=== PATIENT | female | born 1940 | race Hispanic/Latino ===

== ENCOUNTER 2021-07-28 23:02 | Emergency (ER) | payer SELFPAY ==
[2021-07-29 01:38] LABS: Urine Blood Negative (Negative); Urine Glucose Negative (Negative); Urine Protein Negative (Negative); Urine Specific Gravity 1.025 (1.005-1.030)
[2021-07-29 02:09] LABS: Urine Amorphous Sediment 1+ /HPF (NONE SEEN); Urine Bacteria <20 /HPF (<20); Urine RBC <5 /HPF (NONE SEEN); Urine Urothelial Cells <5 /HPF (NONE SEEN)
[2021-07-29] MEDS ORDERED: NA CHLORIDE 0.9% 500 ML ONE (02:11)
[2021-07-29] MEDS ORDERED: ONDANSETRON 4 MG/2 ML VIAL ONE (02:11)
[2021-07-29] MEDS ORDERED: FAMOTIDINE 20 MG/2 ML VIAL IV ONE (02:11)
[2021-07-29 02:36] LABS: Absolute Lymphocytes (CBC) 0.6 K/uL (0.7-4.9); Hematocrit 38.9 % (36.0-45.0); Lymphocytes % 12.4 % (15.3-44.8); MPV 6.7 fL (7.6-11.3); RBC Red Blood Cell Count 4.51 M/uL (3.86-4.86)
[2021-07-29 02:49] LABS: Albumin 3.3 g/dL (3.4-5.0); Bilirubin Total 0.6 mg/dL (0.2-1.0); Potassium 3.5 mmol/L (3.5-5.1); Protein, Total 6.7 g/dL (6.4-8.2)
[2021-07-29] MEDS ORDERED: CEFTRIAXONE 1000 MG/VIAL ONE (03:48)
--- NOTE | 2021-07-29 05:13 | ER ---
Nurse's Notes [facility] Name: Elizabeth Mcclellan Age: 80 yrs Sex: Female : 1940 Arrival Date: 07/28/2021 Time: 23:06 Bed 5 Private MD: Diagnosis: Gastroenteritis;UTI/ Urinary tract infection, site not specified Presentation: 07/28 23:19 Chief complaint:. ld1 23:22 Chief complaint: Patient states: N/V/D - chills, no fever. Symptoms began this morning. ld1 Coronavirus screen: At this time, the client does not indicate any symptoms associated with coronavirus-19. Ebola Screen: No symptoms or risks identified at this time. Initial Sepsis Screen: Does the patient meet any 2 criteria? No. Patient's initial sepsis screen is negative. Does the patient have a suspected source of infection? No. Patient's initial sepsis screen is negative. Risk Assessment: Do you want to hurt yourself or someone else? Patient reports no desire to harm self or others. Onset of symptoms was July 28, 2021. 23:22 Method Of Arrival: Ambulatory ld1 23:22 Acuity: AYAD 3 ld1 Triage Assessment: 23:24 General: Appears in no apparent distress. comfortable, Behavior is calm, cooperative, ld1 appropriate for age. Pain: Denies pain. EENT: No signs and/or symptoms were reported regarding the EENT system. Neuro: Level of Consciousness is awake, alert, obeys commands, Oriented to person, place, time, situation. Cardiovascular: Capillary refill < 3 seconds Patient's skin is warm and dry. Respiratory: Airway is patent Respiratory effort is even, unlabored. GI: Abdomen is round non-distended, Reports diarrhea, nausea, vomiting. : No signs and/or symptoms were reported regarding the genitourinary system. Derm: No signs and/or symptoms reported regarding the dermatologic system. Musculoskeletal: No signs and/or symptoms reported regarding the musculoskeletal system. Historical: - Allergies: 23:20 No Known Allergies; ld1 - Home Meds: 23:20 pantoprazole 40 mg oral grps 1 packet 2 times per day [Active]; candesartan 16 mg oral ld1 tab 1 tab once daily [Active]; Diazepam Oral [Active]; - PMHx: 23:22 Hypertensive disorder; Anxiety; GERD; ld1 - PSHx: 23:22 Cholecystectomy; ld1 - Immunization history:: Adult Immunizations up to date, Client reports having NOT received the Covid vaccine. - Social history:: Smoking status: Patient denies any tobacco usage or history of. Patient/guardian denies using alcohol. Screenin/17 02:20 Abuse screen: Denies threats or abuse. Denies injuries from another. Nutritional as6 screening: No deficits noted. Tuberculosis screening: No symptoms or risk factors identified. Fall Risk None identified. Assessment: 02:20 General: Appears in no apparent distress. Behavior is calm, cooperative. Pain: as6 Complains of pain in epigastric area. Neuro: Level of Consciousness is awake, alert, obeys commands, Oriented to person, place, time, situation. Cardiovascular: JVD is absent Patient's skin is warm and dry. Respiratory: Respiratory effort is even, unlabored, Respiratory pattern is regular, symmetrical. GI: Reports upper abdominal pain, diarrhea, nausea, vomiting. Vital Signs: 07/28 23:22 BP 154 / 80; Pulse 82; Resp 18; Temp 97.9(O); Pulse Ox 97% on R/A; Weight 77.11 kg; ld1 Height 5 ft. 3 in. (160.02 cm); Pain 0/10; 07/29 02:00 BP 147 / 72; Pulse 71; Resp 18 S; Pulse Ox 94% on R/A; as6 03:00 BP 143 / 68; Pulse 76; Resp 16 S; Pulse Ox 95% on R/A; as6 03:55 BP 140 / 74; Pulse 80; Resp 15 S; Pulse Ox 95% on R/A; as6 05:18 BP 150 / 72; Pulse 76; Resp 15 S; Pulse Ox 96% on R/A; as6 07/28 23:22 Body Mass Index 30.11 (77.11 kg, 160.02 cm) ld1 ED Course: 07/28 23:06 Patient arrived in ED. kz 23:24 Triage completed. ld1 23:24 Arm band placed on right wrist. ld1 07/29 01:30 Bairon Silva RN is Primary Nurse. as6 01:34 Sunny Alonso MD is Attending Physician. 7 02:15 Inserted saline lock: 22 gauge in right antecubital area, using aseptic technique. as6 Blood collected. 02:20 Placed in gown. Bed in low position. Call light in reach. Side rails up X 1. Adult w/ as6 patient. Pulse ox on. NIBP on. Warm blanket given. 03:50 CT Abd/Pelvis - IV Contrast Only In Process Unspecified. EDMS 05:28 No provider procedures requiring assistance completed. IV discontinued, intact, as6 bleeding controlled, No redness/swelling at site. Pressure dressing applied. Administered Medications: 02:21 Drug: Pepcid (famotidine) 20 mg Route: IVP; Site: right antecubital; as6 05:30 Follow up: Response: No adverse reaction as6 02:21 Drug: NS 0.9% 500 ml Route: IV; Rate: bolus; Site: right antecubital; as6 05:30 Follow up: Response: No adverse reaction; IV Status: Completed infusion; IV Intake: as6 500ml 02:22 Drug: Zofran (Ondansetron) 4 mg Route: IVP; Site: right antecubital; as6 05:29 Follow up: Response: No adverse reaction as6 03:55 Drug: Rocephin (cefTRIAXone) 1 grams Route: IV; Rate: per protocol; Site: right as6 antecubital; 05:31 Follow up: Response: No adverse reaction; IV Status: Completed infusion; IV Intake: [id number] Medication: 05:29 VIS not applicable for this client. as6 Intake: 05:30 IV: 500ml; Total: 500ml. as6 05:31 IV: 10ml; Total: 510ml. as6 Outcome: 05:12 Discharge ordered by . 7 05:29 Discharged to home ambulatory, with family. as6 05:29 Condition: stable 05:29 Discharge instructions given to patient, family, Instructed on discharge instructions, follow up and referral plans. medication usage, Demonstrated understanding of instructions, follow-up care, medications, Prescriptions given X 4. 05:31 Patient left the ED. as6 Signatures: Dispatcher [employer] EDMS Sunny Alonso MD MD 7 Elizabeth Ortega RN RN ld1 Bairon Silva RN RN as6 Ninoska Gasca Corrections: (The following items were deleted from the chart) 07/28 23:23 23:20 Allergies: Aspirin; ld1 ld1 23:22 PSHx: Appendectomy; ld1 ld1
--- NOTE | 2021-07-29 05:13 | EDPHYS ---
Physician Documentation [facility] Name: Elizabeth Mcclellan Age: 80 yrs Sex: Female : 1940 Arrival Date: 07/28/2021 Time: 23:06 Bed 5 Private MD: ED Physician Sunny Alonso HPI: 07/29 02:10 This 80 yrs old Female presents to ER via Ambulatory with complaints of mh7 Nausea/Vomiting. 02:10 The patient presents to the emergency department with nausea, that is moderate, mh7 vomiting, that is intermittent, described as clear fluid, diarrhea, that is intermittent. 02:10 Onset: The symptoms/episode began/occurred yesterday. Possible causes: bad food mh7 exposure, possibly bad restaurant food. The symptoms are aggravated by nothing. The symptoms are alleviated by nothing. Associated signs and symptoms: Pertinent positives: abdominal pain, diarrhea, nausea, vomiting, Pertinent negatives: anorexia, belching, constipation, dysuria, fever, flatulence, GI bleeding, hematuria, vaginal discharge. Severity of symptoms: At their worst the symptoms were moderate yesterday, in the emergency department the symptoms have improved moderately. Historical: - Allergies: 07/28 23:20 No Known Allergies; ld1 - Home Meds: 23:20 pantoprazole 40 mg oral grps 1 packet 2 times per day [Active]; candesartan 16 mg oral ld1 tab 1 tab once daily [Active]; Diazepam Oral [Active]; - PMHx: 23:22 Hypertensive disorder; Anxiety; GERD; ld1 - PSHx: 23:22 Cholecystectomy; ld1 - Immunization history:: Adult Immunizations up to date, Client reports having NOT received the Covid vaccine. - Social history:: Smoking status: Patient denies any tobacco usage or history of. Patient/guardian denies using alcohol. ROS: 07/29 02:10 Constitutional: Negative for fever, chills, and weight loss, Eyes: Negative for injury, mh7 pain, redness, and discharge, ENT: Negative for injury, pain, and discharge, Neck: Negative for injury, pain, and swelling, Cardiovascular: Negative for chest pain, palpitations, and edema, Respiratory: Negative for shortness of breath, cough, wheezing, and pleuritic chest pain, Back: Negative for injury and pain, : Negative for injury, bleeding, discharge, and swelling, MS/Extremity: Negative for injury and deformity, Skin: Negative for injury, rash, and discoloration, Neuro: Negative for headache, weakness, numbness, tingling, and seizure, Psych: Negative for depression, anxiety, suicide ideation, homicidal ideation, and hallucinations, Allergy/Immunology: Negative for hives, rash, and allergies, Endocrine: Negative for neck swelling, polydipsia, polyuria, polyphagia, and marked weight changes, Hematologic/Lymphatic: Negative for swollen nodes, abnormal bleeding, and unusual bruising. Exam: 02:10 Head/Face: Normocephalic, atraumatic. Eyes: Pupils equal round and reactive to light, mh7 extra-ocular motions intact. Lids and lashes normal. Conjunctiva and sclera are non-icteric and not injected. Cornea within normal limits. Periorbital areas with no swelling, redness, or edema. Neck: Trachea midline, no thyromegaly or masses palpated, and no cervical lymphadenopathy. Supple, full range of motion without nuchal rigidity, or vertebral point tenderness. No Meningismus. Chest/axilla: Normal chest wall appearance and motion. Nontender with no deformity. No lesions are appreciated. Cardiovascular: Regular rate and rhythm with a normal S1 and S2. No gallops, murmurs, or rubs. Normal PMI, no JVD. No pulse deficits. Respiratory: Lungs have equal breath sounds bilaterally, clear to auscultation and percussion. No rales, rhonchi or wheezes noted. No increased work of breathing, no retractions or nasal flaring. Back: No spinal tenderness. No costovertebral tenderness. Full range of motion. Skin: Warm, dry with normal turgor. Normal color with no rashes, no lesions, and no evidence of cellulitis. MS/ Extremity: Pulses equal, no cyanosis. Neurovascular intact. Full, normal range of motion. Neuro: Awake and alert, GCS 15, oriented to person, place, time, and situation. Cranial nerves II-XII grossly intact. Motor strength 5/5 in all extremities. Sensory grossly intact. Cerebellar exam normal. Normal gait. Psych: Awake, alert, with orientation to person, place and time. Behavior, mood, and affect are within normal limits. 02:10 Constitutional: The patient appears in no acute distress, alert, awake, uncomfortable. 02:10 Abdomen/GI: Inspection: abdomen appears normal, Bowel sounds: normal, Palpation: mild abdominal tenderness, in the epigastric area, mass, is not appreciated, rebound tenderness, is not appreciated, voluntary guarding, is not appreciated, involuntary guarding, is not appreciated, no appreciated organomegaly, Rectal exam: the exam is deferred, because of patient request, Indicators: McBurney's point is not tender, Locke's sign is negative, Rovsing's sign is negative, Obturator sign is negative, Psoas sign is negative, Liver: no appreciated palpable abnormalities, Hernia: not appreciated. Vital Signs: 07/28 23:22 BP 154 / 80; Pulse 82; Resp 18; Temp 97.9(O); Pulse Ox 97% on R/A; Weight 77.11 kg; ld1 Height 5 ft. 3 in. (160.02 cm); Pain 0/10; 07/29 02:00 BP 147 / 72; Pulse 71; Resp 18 S; Pulse Ox 94% on R/A; as6 03:00 BP 143 / 68; Pulse 76; Resp 16 S; Pulse Ox 95% on R/A; as6 03:55 BP 140 / 74; Pulse 80; Resp 15 S; Pulse Ox 95% on R/A; as6 05:18 BP 150 / 72; Pulse 76; Resp 15 S; Pulse Ox 96% on R/A; as6 07/28 23:22 Body Mass Index 30.11 (77.11 kg, 160.02 cm) ld1 MDM: 05:10 Differential diagnosis: Nonspecific abd pain, gastritis, pancreatitis, viral mh7 gastroenteritis, gastroenteritis. Data reviewed: vital signs, nurses notes, lab test result(s), CBC, electrolytes, urinalysis, EKG, radiologic studies, CT scan. Data interpreted: Pulse oximetry: on room air is 96 %. Interpretation: normal. Counseling: I had a detailed discussion with the patient and/or guardian regarding: the historical points, exam findings, and any diagnostic results supporting the discharge/admit diagnosis, the presence of at least one elevated blood pressure reading (>120/80) during this emergency department visit, lab results, radiology results, the need for outpatient follow up, to return to the emergency department if symptoms worsen or persist or if there are any questions or concerns that arise at home. Response to treatment: the patient's symptoms have resolved after treatment, the patient's blood pressure is in an acceptable range, mental status has returned to baseline, the patient no longer shows bradycardia, the patient is not short of breath, the patient is not tachycardic, the patient's pain is gone, the patient's temperature has normalized, the patient is now symptom free, patient is well hydrated. 05:12 Patient medically screened. [facility] 07/29 01:38 Order name: Urine Culture [facility] 07/29 01:38 Order name: Urine Microscopic Only; Complete Time: 02:41 [facility] 07/29 01:38 Order name: Urine Dipstick-Ancillary; Complete Time: 01:55 EDMS 07/29 02:04 Order name: CBC with Diff; Complete Time: 02:41 [facility] 07/29 02:04 Order name: CMP; Complete Time: 02:57 [facility] 07/29 02:04 Order name: Lipase; Complete Time: 02:57 [facility] 07/29 01:38 Order name: Urine Dipstick-Ancillary (obtain specimen); Complete Time: 01:38 [facility] 07/29 02:04 Order name: CT Abd/Pelvis - IV Contrast Only [facility] 07/29 02:04 Order name: IV Saline Lock; Complete Time: 02:21 [facility] 07/29 02:04 Order name: EKG; Complete Time: 02:04 [facility] 07/29 02:04 Order name: Labs collected and sent; Complete Time: 02:21 [facility] 07/29 02:04 Order name: EKG - Nurse/Tech; Complete Time: 02:21 Administered Medications: 02:21 Drug: Pepcid (famotidine) 20 mg Route: IVP; Site: right antecubital; as6 05:30 Follow up: Response: No adverse reaction as6 02:21 Drug: NS 0.9% 500 ml Route: IV; Rate: bolus; Site: right antecubital; as6 05:30 Follow up: Response: No adverse reaction; IV Status: Completed infusion; IV Intake: as6 500ml 02:22 Drug: Zofran (Ondansetron) 4 mg Route: IVP; Site: right antecubital; as6 05:29 Follow up: Response: No adverse reaction as6 03:55 Drug: Rocephin (cefTRIAXone) 1 grams Route: IV; Rate: per protocol; Site: right as6 antecubital; 05:31 Follow up: Response: No adverse reaction; IV Status: Completed infusion; IV Intake: [id number] Disposition Summary: 07/29/21 05:12 Discharge Ordered Location: Home [facility] Problem: new [facility] Symptoms: have improved [facility] Condition: Stable [facility] Diagnosis - Gastroenteritis [facility] - UTI/ Urinary tract infection, site not specified [facility] Followup: [facility] - With: Private Physician - When: 1 - 2 days - Reason: Worsening of condition, Recheck today's complaints, Continuance of care, Re-evaluation by your physician Discharge Instructions: - Discharge Summary Sheet [facility] - Viral Gastroenteritis, Adult, [id number] [facility] - Urinary Tract Infection, Adult, [id number] [facility] Forms: - Medication Reconciliation Form [facility] - Thank You Letter [facility] - Antibiotic Education [facility] - Prescription Opioid Use [facility] Prescriptions: - ondansetron 4 mg Oral tablet,disintegrating - place 1 tablet by TRANSLINGUAL route every 8 hours As needed; 10 tablet; [facility] Refills: 0, Product Selection Permitted - Cephalexin 500 mg Oral Capsule - take 1 capsule by ORAL route every 12 hours for 7 days; 14 capsule; Refills: 0, [facility] Product Selection Permitted - Pepcid 20 mg Oral Tablet - take 1 tablet by ORAL route every 12 hours for 5 days; 10 tablet; Refills: 0, [facility] Product Selection Permitted - dicyclomine 10 mg Oral Capsule - take 1 capsule by ORAL route 4 times per day As needed; 15 capsule; Refills: 0, [facility] Product Selection Permitted Signatures: Dispatcher [employer] [facility] Venessa Dickinson 2 Sunny Alonso MD MD 7 Elizabeth Ortega RN RN ld1 Bairon Silva RN RN as6 Akiko Can PA PA sb3 Corrections: (The following items were deleted from the chart) 07/28 23:23 23:20 Allergies: Aspirin; ld1 ld1 23:23 23:22 PSHx: Appendectomy; ld1 ld1
[2021-07-29 05:48] VITALS: TEMP 97.9
[2021-07-29 05:55] VITALS: BP 150/72; O2SAT 96
--- NOTE | 2021-07-29 09:32 | EKG ---
Test Date: 2021-07-29 Test Time: 02:15:56 Adult Parole Officer: [employer] MEASUREMENT RESULTS: Intervals: Rate: 72 NH: 150 QRSD: 94 QT: 516 QTc: 565 [place]: P: 14 NH: 150 QRS: 66 T: 110 INTERPRETIVE STATEMENTS: Normal sinus rhythm ST & T wave abnormality, consider anterior ischemia Prolonged QT Abnormal ECG Compared to ECG 09/13/2009 22:18:19 ST (T wave) deviation now present Possible ischemia now present Electronically Signed On 07-29-21 09:31:56 CDT by Apolinar Pearson
--- NOTE | 2021-07-29 17:11 | RAD REPORT ---
EXAM DESCRIPTION: CT - Abdomen Pelvis W Contrast - 07/29/2021 6:31 am CLINICAL HISTORY: The patient is 80 years old and is Female; Nausea/vomiting TECHNIQUE: Axial computed tomography images of the abdomen and pelvis with intravenous contrast. S agittal and coronal reformatted images were created and reviewed. This CT exam was performed using one or more of the following dose reduction techniques: automated exposure control, adjustment of t he mA and/or kV according to patient size, and/or use of iterative reconstruction technique. COMPARISON: No relevant prior studies available. FINDINGS: Lung bases: Linear atelectasis right lower lobe. Compressive atelectasis in the visualiz ed right lower lobe. Pleural space: Small left pleural effusion. Heart: Mild cardiomegaly. ABDOMEN: Liver: Mild fatty liver. Left hepatic cyst, 1.5 cm. No follow-up imaging recommended. Gallbladder and bile ducts: Cholecystectomy without biliary dilatation. Pancreas: No findings to suggest acute pancreatitis. No mass visualized. No ductal dilation. Spleen: Unremarkable. No splenomegaly. Adrenals: Unremarkable. No mass. Kidneys and ureters: Unremarkable. No solid mass. No hydronephrosis. Stomach and bowel: Colonic diverticulosis. No bowel dilatation or obstruction. No bowel wall thickening. PELVIS: Appendix: The visualized appendix is normal. No pericecal inflammation to suggest acute appendici tis. Bladder: Unremarkable. No mass. Reproductive: Unremarkable as visualized. ABDOMEN and PELVIS: Intraperitoneal space: Unremarkable. No free air. No significant fluid collection. Bones/joints: Degenerative changes in the lumbar spine. Old T12 compression fracture/vertebra toyin na with mild central canal stenosis secondary to 4 to 5 mm retropulsion. No dislocation. Soft tissues: Unremarkable. Vasculature: Unremarkable. No abdominal aortic aneurysm. Lymph nodes: No pathologically enlarged lymph nodes. IMPRESSION: 1. No acute obstructive or inflammatory process identified. Normal appendix. 2. Colonic diverticulosis. 3. Small left pleural effusion with compressive atelectasis of the left lower lobe. 4. Additional non-emergent findings as above. Electronically signed by: Rita Holland MD 07/29/2021 4:26 AM CDT Due to temporary technical issues with the PACS/Fluency reporting system, reports are being signed by the in house radiologists without review as a courtesy to insure prompt reporting. The interpreting radiologist is fully responsible for the content of the report.
== END 2021-07-29 05:31 | disposition home or self-care (01) ==
LOC: ER 23:02
DX: K52.9 Noninfective gastroenteritis and colitis, unspecified (principal); N39.0 Urinary tract infection, site not specified; F41.9 Anxiety disorder, unspecified; I10 Essential (primary) hypertension; K21.9 Gastro-esophageal reflux disease without esophagitis
CPT/HCPCS: 36415; 74177; 80053; 81003; 81015; 83690; 85025; 87086; 87088; 93005; 96361; 96365; 96366; 96375; 99284; J2405; J3490; J7040; Q9967

== ENCOUNTER 2021-10-26 19:33 | Emergency (ER) | payer SELFPAY ==
--- OUTSIDE RECORDS SUMMARY | 2021-10-26 19:36 | XMS REPORT | Continuity of Care Document ---
:1940 Author Organization [facility] t Address [address] [place] [address] [place] [id number] Care Team Providers Name Role Phone Unavailable Unavailable Unavailable Problems This patient has no known problems. Allergies, Adverse Reactions, Alerts This patient has no known allergies or adverse reactions. Medications This patient has no known medications. Procedures This patient has no known procedures. Results This patient has no known results.
--- NOTE | 2021-10-26 21:18 | RAD REPORT ---
EXAM DESCRIPTION: RAD - Chest Single View - 10/26/2021 9:12 pm CLINICAL HISTORY: SOB Chest pain. COMPARISON: CHEST SINGLE VIEW dated 09/14/2009; CHEST SINGLE VIEW dated 12/30/2007; ABDOMEN ACUTE SERI ES dated 12/26/2007 FINDINGS: Portable technique limits examination quality. Mild interstitial pulmonary edema. The heart is mildly enlarged in size. Small bilateral pleural effu sions. No displaced fractures. IMPRESSION: Mild CHF.
[2021-10-26] MEDS ORDERED: ACETAMINOPHEN 500 MG TAB ONE (21:32)
[2021-10-26 21:57] LABS: Absolute Lymphocytes (CBC) 1.3 K/uL (0.7-4.9); Hematocrit 38.3 % (36.0-45.0); Lymphocytes % 36.3 % (15.3-44.8); MCV 86.4 fL (80-100); MPV 7.4 fL (7.6-11.3); RBC Red Blood Cell Count 4.43 M/uL (3.86-4.86)
[2021-10-26 22:00] LABS: Urine Blood Trace-intact (Negative); Urine Glucose Negative (Negative); Urine Protein Negative (Negative); Urine Specific Gravity 1.015 (1.005-1.030); Urine pH 8.5 (5.0-7.0)
--- NOTE | 2021-10-26 22:06 | RAD REPORT ---
EXAM DESCRIPTION: CT - Head Brain Wo Cont - 10/26/2021 10:01 pm CLINICAL HISTORY: Headache, tension-type Headache, drowsiness COMPARISON: Abdomen Pelvis W Contrast dated 07/29/2021 TECHNIQUE: All CT scans are performed using dose optimization technique as appropriate and may inclu de automated exposure control or mA/KV adjustment according to patient size. FINDINGS: No intracranial hemorrhage, hydrocephalus or extra-axial fluid collection.No areas of brai n edema or evidence of midline shift. The paranasal sinuses and mastoids are clear. The calvarium is intact. IMPRESSION: No acute intracranial abnormality.
[2021-10-26 22:13] LABS: Protime INR 1.28
[2021-10-26 22:49] LABS: Albumin 3.3 g/dL (3.4-5.0); Bilirubin Direct 0.1 mg/dL (0-0.2); Bilirubin Total 0.6 mg/dL (0.2-1.0); Magnesium 2.3 mg/dL (1.8-2.4); Potassium 3.6 mmol/L (3.5-5.1); Protein, Total 6.8 g/dL (6.4-8.2); Troponin High Sensitivity 9.9 pg/mL (<58.9)
--- NOTE | 2021-10-27 02:02 | ER ---
Nurse's Notes [facility] Name: Elizabeth Mcclellan Age: 81 yrs Sex: Female : 1940 Arrival Date: 10/26/2021 Time: 19:36 Bed 8 Private MD: Diagnosis: SARS-associated coronavirus as the cause of diseases classified elsewhere;Chest pain, unspecified;Dyspnea Presentation: 10/26 20:25 Chief complaint: Patient states: Pt reports "not feeling well", SOB, chest tightness x1 kb3 week. Also reports right-sided headache x1 week. Coronavirus screen: Vaccine status: Patient reports receiving the 2nd dose of the covid vaccine. At this time, the client does not indicate any symptoms associated with coronavirus-19. Ebola Screen: Patient negative for fever greater than or equal to 101.5 degrees Fahrenheit, and additional compatible Ebola Virus Disease symptoms Patient denies exposure to infectious person. Patient denies travel to an Ebola-affected area in the 21 days before illness onset. No symptoms or risks identified at this time. Initial Sepsis Screen: Does the patient meet any 2 criteria? No. Patient's initial sepsis screen is negative. Does the patient have a suspected source of infection? No. Patient's initial sepsis screen is negative. Risk Assessment: Do you want to hurt yourself or someone else? Patient reports no desire to harm self or others. Onset of symptoms was October 19, 2021. 20:25 Method Of Arrival: Ambulatory kb3 20:25 Acuity: AYAD 2 kb3 Triage Assessment: 20:27 General: Appears in no apparent distress. uncomfortable, Behavior is calm, cooperative. kb3 Pain: Denies pain. Respiratory: Reports shortness of breath at rest Onset: The symptoms/episode began/occurred 1 week, the patient has mild shortness of breath. Historical: - Allergies: 20:27 No Known Allergies; kb3 - Home Meds: 20:27 candesartan 16 mg Oral tab 1 tab once daily [Active]; diazepam Oral [Active]; kb3 pantoprazole 40 mg Oral grps 1 packet 2 times per day [Active]; - PMHx: 20:27 Anxiety; GERD; Hypertensive disorder; kb3 - PSHx: 20:27 Cholecystectomy; kb3 - Immunization history:: Adult Immunizations up to date, Client reports receiving the 2nd dose of the Covid vaccine, Last tetanus immunization: unknown. - Social history:: Smoking status: Patient denies any tobacco usage or history of. Patient/guardian denies using alcohol, street drugs. Screenin:49 Abuse screen: Denies threats or abuse. Denies injuries from another. Nutritional aa9 screening: No deficits noted. Tuberculosis screening: No symptoms or risk factors identified. Fall Risk None identified. Assessment: 20:47 General: Appears distressed, Behavior is cooperative, anxious. Pain: Complains of pain aa9 in headache Pain currently is 4 out of 10 on a pain scale. Vital Signs: 20:25 BP 147 / 93; Pulse 67; Resp 20; Temp 97.6; Pulse Ox 100% ; Weight 72.57 kg; Height 5 kb3 ft. 0 in. (152.40 cm); Pain 0/10; 20:48 BP 146 / 115; Pulse 63; Resp 21 S; Temp 98.6(O); Pulse Ox 100% on R/A; Pain 4/10; aa9 22:00 BP 137 / 87; Pulse 82; Resp 22; Pulse Ox 100% on R/A; aa9 23:40 BP 163 / 81; Pulse 65; Resp 14 S; Pulse Ox 100% on R/A; as6 10/27 00:52 BP 200 / 83; Pulse 69; Resp 12 S; Pulse Ox 100% on R/A; aa9 01:09 BP 171 / 74; Pulse 70; Resp 15 S; Pulse Ox 100% on R/A; as6 01:50 BP 175 / 75; Pulse 68; Resp 15 S; Pulse Ox 100% on R/A; Pain 0/10; aa9 10/26 20:25 Body Mass Index 31.25 (72.57 kg, 152.40 cm) kb3 ED Course: 10/26 19:36 Patient arrived in ED. ja2 20:27 Triage completed. kb3 20:27 Arm band placed on right wrist. kb3 20:36 Bairon Silva, SHARON is Primary Nurse. as6 20:40 Sunny Alonso MD is Attending Physician. 7 20:49 Patient has correct armband on for positive identification. Adult w/ patient. aa9 21:14 XRAY Chest (1 view) In Process Unspecified. EDMS 21:40 Inserted saline lock: 22 gauge in right antecubital area, using aseptic technique. aa9 Blood collected. 21:53 COVID-19 SARS RT PCR (Document "Date of Onset" if Symptomatic) Sent. aa9 21:53 Basic Metabolic Panel Sent. aa9 21:53 CBC with Diff Sent. aa9 21:53 LFT's Sent. aa9 21:53 Magnesium Sent. aa9 21:53 NT PRO-BNP Sent. aa9 21:53 PT-INR Sent. aa9 21:53 Troponin HS Sent. aa9 22:02 CT Head Brain wo Cont In Process Unspecified. EDMS 22:18 Warm blanket given. Head of bed elevated. aa9 22:51 Warm blanket given. aa9 10/27 00:44 CT Chest For PE Angio In Process Unspecified. EDMS 01:51 No provider procedures requiring assistance completed. aa9 02:05 Apolinar Pearson MD is Referral Physician. mh7 02:14 IV discontinued, intact, bleeding controlled, No redness/swelling at site. Pressure as6 dressing applied. Administered Medications: 10/26 21:53 Drug: Tylenol 1000 mg Route: PO; aa9 10/27 02:15 Follow up: Response: No adverse reaction as6 02:13 Drug: AZITHromycin 500 mg Route: PO; as6 02:14 Follow up: Response: No adverse reaction as6 Medication: 01:51 VIS not applicable for this client. aa9 Outcome: 02:13 AMA Other discharge paperwork given as6 02:13 Condition: stable 02:13 Discharge instructions given to patient, family, Instructed on discharge instructions, follow up and referral plans. medication usage, Demonstrated understanding of instructions, follow-up care, medications, Prescriptions given X 3. 02:15 Patient left the ED. as6 Signatures: Dispatcher [employer] EDMS Sunny Alonso MD MD mh7 Ave Heck Ashby, RN RN as6 Citlaly Mathew RN RN aa9 Ninoska Woodruff, SHARON RN kb3 Corrections: (The following items were deleted from the chart) 10/26 20:29 20:25 Chief complaint: Patient states: Pt reports "not feeling well", SOB, chest kb3 tightness x1 week kb3 22:05 21:53 D-DIMER+COAG.LAB.BRZ drawn and sent. aa9 EDMS
--- NOTE | 2021-10-27 02:02 | EDPHYS ---
Physician Documentation [facility] Name: Elizabeth Mcclellan Age: 81 yrs Sex: Female : 1940 Arrival Date: 10/26/2021 Time: 19:36 Bed 8 Private MD: ED Physician Sunny Alonso HPI: 10/26 20:56 This 81 yrs old Female presents to ER via Ambulatory with complaints of mh7 Breathing Difficulty, Headache. 20:56 The patient has shortness of breath at rest. Onset: The symptoms/episode began/occurred mh7 1 week(s) ago. Duration: The symptoms are intermittent, with no pattern. The patient's shortness of breath is aggravated by exertion, light activity, is alleviated by nothing. Associated signs and symptoms: Pertinent positives: chest pain, Headache, Pertinent negatives: non-productive cough, productive cough, diaphoresis, dizziness, fever, hemoptysis, loss of consciousness, nausea, numbness in extremities, visual changes, vomiting. Severity of symptoms: At their worst the symptoms were moderate 4 day(s) ago, in the emergency department the symptoms are unchanged. Historical: - Allergies: 20:27 No Known Allergies; kb3 - Home Meds: 20:27 candesartan 16 mg Oral tab 1 tab once daily [Active]; diazepam Oral [Active]; kb3 pantoprazole 40 mg Oral grps 1 packet 2 times per day [Active]; - PMHx: 20:27 Anxiety; GERD; Hypertensive disorder; kb3 - PSHx: 20:27 Cholecystectomy; kb3 - Immunization history:: Adult Immunizations up to date, Client reports receiving the 2nd dose of the Covid vaccine, Last tetanus immunization: unknown. - Social history:: Smoking status: Patient denies any tobacco usage or history of. Patient/guardian denies using alcohol, street drugs. ROS: 20:56 Constitutional: Negative for fever, chills, and weight loss, Eyes: Negative for injury, mh7 pain, redness, and discharge, ENT: Negative for injury, pain, and discharge, Neck: Negative for injury, pain, and swelling, Abdomen/GI: Negative for abdominal pain, nausea, vomiting, diarrhea, and constipation, Back: Negative for injury and pain, : Negative for injury, bleeding, discharge, and swelling, MS/Extremity: Negative for injury and deformity, Skin: Negative for injury, rash, and discoloration, Psych: Negative for depression, anxiety, suicide ideation, homicidal ideation, and hallucinations, Allergy/Immunology: Negative for hives, rash, and allergies, Endocrine: Negative for neck swelling, polydipsia, polyuria, polyphagia, and marked weight changes, Hematologic/Lymphatic: Negative for swollen nodes, abnormal bleeding, and unusual bruising. Exam: 20:56 Constitutional: This is a well developed, well nourished patient who is awake, alert, mh7 and in no acute distress. Head/Face: Normocephalic, atraumatic. Eyes: Pupils equal round and reactive to light, extra-ocular motions intact. Lids and lashes normal. Conjunctiva and sclera are non-icteric and not injected. Cornea within normal limits. Periorbital areas with no swelling, redness, or edema. Neck: Trachea midline, no thyromegaly or masses palpated, and no cervical lymphadenopathy. Supple, full range of motion without nuchal rigidity, or vertebral point tenderness. No Meningismus. Chest/axilla: Normal chest wall appearance and motion. Nontender with no deformity. No lesions are appreciated. Cardiovascular: Regular rate and rhythm with a normal S1 and S2. No gallops, murmurs, or rubs. Normal PMI, no JVD. No pulse deficits. Respiratory: Lungs have equal breath sounds bilaterally, clear to auscultation and percussion. No rales, rhonchi or wheezes noted. No increased work of breathing, no retractions or nasal flaring. Abdomen/GI: Soft, non-tender, with normal bowel sounds. No distension or tympany. No guarding or rebound. No evidence of tenderness throughout. Back: No spinal tenderness. No costovertebral tenderness. Full range of motion. Skin: Warm, dry with normal turgor. Normal color with no rashes, no lesions, and no evidence of cellulitis. MS/ Extremity: Pulses equal, no cyanosis. Neurovascular intact. Full, normal range of motion. Neuro: Awake and alert, GCS 15, oriented to person, place, time, and situation. Cranial nerves II-XII grossly intact. Motor strength 5/5 in all extremities. Sensory grossly intact. Cerebellar exam normal. Normal gait. Psych: Awake, alert, with orientation to person, place and time. Behavior, mood, and affect are within normal limits. Vital Signs: 20:25 BP 147 / 93; Pulse 67; Resp 20; Temp 97.6; Pulse Ox 100% ; Weight 72.57 kg; Height 5 kb3 ft. 0 in. (152.40 cm); Pain 0/10; 20:48 BP 146 / 115; Pulse 63; Resp 21 S; Temp 98.6(O); Pulse Ox 100% on R/A; Pain 4/10; aa9 22:00 BP 137 / 87; Pulse 82; Resp 22; Pulse Ox 100% on R/A; aa9 23:40 BP 163 / 81; Pulse 65; Resp 14 S; Pulse Ox 100% on R/A; as6 10/27 00:52 BP 200 / 83; Pulse 69; Resp 12 S; Pulse Ox 100% on R/A; aa9 01:09 BP 171 / 74; Pulse 70; Resp 15 S; Pulse Ox 100% on R/A; as6 01:50 BP 175 / 75; Pulse 68; Resp 15 S; Pulse Ox 100% on R/A; Pain 0/10; aa9 10/26 20:25 Body Mass Index 31.25 (72.57 kg, 152.40 cm) kb3 MDM: 01:58 Differential diagnosis: Anemia Anxiety Reaction asthma, Bronchitis CHF exacerbation, mh7 Chronic Obstructive Pulmonary Disease Myocardial Infarction pneumonia, Pneumothorax Psychogenic pulmonary edema, Pulmonary Embolism reactive airway disease. Data reviewed: vital signs, nurses notes, lab test result(s), cardiac enzymes, CBC, electrolytes, EKG, radiologic studies, CT scan, plain films. Data interpreted: Pulse oximetry: on room air is 100 %. Interpretation: normal. Counseling: I had a detailed discussion with the patient and/or guardian regarding: the historical points, exam findings, and any diagnostic results supporting the discharge/admit diagnosis, the presence of at least one elevated blood pressure reading (>120/80) during this emergency department visit, lab results, radiology results, the need for further work-up and treatment in the hospital. Response to treatment: the patient's symptoms have mildly improved after treatment. Refusal of service: The patient/guardian displays adequate decision making capability and despite a detailed discussion of alternatives, benefits, risks, and consequences refuses: Admission to the hospital for further work-up and treatment. 01:58 ED course: Feels better, NAD, VSS, no focal neurological deficits. Discussed test [facility] results and findings and need to admit for further evaluation given chest pain and dyspnea. Patient declined admission and wants to leave against medical advice. Explained the possibility of permanent disability and/or if serious condition is present and goes untreated. She verbalized that she understood this information as presented. family by bedside. Advised to return to the ER if worsening of symptoms or any other concerns.. 02:01 Patient medically screened. [facility] 10/26 20:51 Order name: Basic Metabolic Panel; Complete Time: 23:04 [facility] 10/26 20:51 Order name: CBC with Diff; Complete Time: 22:27 [facility] 10/26 20:51 Order name: LFT's; Complete Time: 23: [facility] 10/26 20:51 Order name: Magnesium; Complete Time: 23: [facility] 10/26 20:51 Order name: NT PRO-BNP; Complete Time: 23:04 [facility] 10/26 20:51 Order name: PT-INR; Complete Time: 22:27 [facility] 10/26 20:51 Order name: Troponin HS; Complete Time: 23: [facility] 10/26 20:51 Order name: XRAY Chest (1 view); Complete Time: 21:45 [facility] 10/26 20:52 Order name: COVID-19 SARS RT PCR (Document "Date of Onset" if Symptomatic); Complete [facility] Time: 23:10/26 20:53 Order name: CT Head Brain wo Cont; Complete Time: 22:27 [facility] 10/26 22:01 Order name: Urine Dipstick-Ancillary; Complete Time: 22:27 [facility] 10/26 22:07 Order name: D-Dimer; Complete Time: 22:27 [facility] 10/26 23:08 Order name: CT Chest For PE Angio [facility] 10/26 20:51 Order name: EKG; Complete Time: 20:54 [facility] 10/26 20:51 Order name: Cardiac monitoring; Complete Time: 20:52 [facility] 10/26 20:51 Order name: EKG - Nurse/Tech; Complete Time: 21:53 [facility] 10/26 20:51 Order name: IV Saline Lock; Complete Time: 21:53 [facility] 10/26 20:51 Order name: Labs collected and sent; Complete Time: 21:53 [facility] 10/26 20:51 Order name: O2 Per Protocol; Complete Time: 20:52 [facility] 10/26 20:51 Order name: O2 Sat Monitoring; Complete Time: 20:52 [facility] 10/26 20:51 Order name: Urine Dipstick-Ancillary (obtain specimen); Complete Time: 21:59 mh Administered Medications: 10/26 21:53 Drug: Tylenol 1000 mg Route: PO; aa9 10/27 02:15 Follow up: Response: No adverse reaction as6 02:13 Drug: AZITHromycin 500 mg Route: PO; as6 02:14 Follow up: Response: No adverse reaction as6 Disposition Summary: 10/27/21 02:01 Left Against Medical Advice Location: Home [facility] Problem: an ongoing problem [facility] Symptoms: have improved [facility] Condition: Stable [facility] Diagnosis - SARS-associated coronavirus as the cause of diseases classified elsewhere 7 - Chest pain, unspecified 7 - Dyspnea [facility] Followup: [facility] - With: Private Physician - When: 1 - 2 days - Reason: Worsening of condition, Recheck today's complaints, Continuance of care, Re-evaluation by your physician Followup: [facility] - With: Apolinar Pearson MD - When: 1 - 2 days - Reason: Worsening of condition, Recheck today's complaints Discharge Instructions: - Discharge Summary Sheet [facility] - Shortness of Breath, Adult, [id number] [facility] - Nonspecific Chest Pain, Adult, [id number] [facility] - COVID-19 [facility] - 10 Things You Can Do to Manage Your COVID-19 Symptoms at Home - [place] [id number] - COVID-19: Quarantine vs. Isolation - [place] [address] - Prevent the Spread of COVID-19 if You Are Sick - [place] [address] Prescriptions: - albuterol sulfate 90 mcg/actuation Inhalation HFA aerosol inhaler - inhale 1 puff by INHALATION route every 6 hours As needed; 1 Inhaler; Refills: [facility] 0, Product Selection Permitted - Tessalon Perles 100 mg Oral Capsule - take 1 capsule by ORAL route every 8 hours As needed; 15 capsule; Refills: 0, 7 Product Selection Permitted - Zithromax Z-Baldo 250 mg Oral Tablet - take 1 tablet by ORAL route as directed for 5 days Day 1 - take two (2) tablets [facility] one time. Day 2, 3, 4 , 5 take one (1) tablet once daily.; 6 tablet; Refills: 0, Product Selection Permitted Signatures: Dispatcher [employer] EDMS Nelson Mark, SAP BPC DEVELOPER-C SAP BPC DEVELOPER-Cla1 Sunny Alonso MD MD mh7 Bairon Silva, SHARON RN as6 Citlaly Mathew RN RN aa9 Ninoska Woodruff RN RN kb3 Corrections: (The following items were deleted from the chart) 10/26 22:05 21:00 D-DIMER+COAG.LAB.BRZ ordered. EDMS EDMS
[2021-10-27] MEDS ORDERED: AZITHROMYCIN 250 MG TAB ONE (02:12)
[2021-10-27 05:05] VITALS: O2SAT 100
[2021-10-27 05:15] VITALS: TEMP 98.6
[2021-10-27 05:44] VITALS: BP 175/75
--- NOTE | 2021-10-27 14:27 | RAD REPORT ---
EXAM DESCRIPTION: Chest For Pe Angio CLINICAL HISTORY: Shortness of breath COMPARISON: None Available. TECHNIQUE: CTA of the chest obtained following the uncomplicated intravenous administration of iodin ated contrast. 3-D/MIP reformatted images of the chest available for evaluation. This exam was perfor med according to our departmental dose-optimization program, which includes automated exposure contro l, adjustment of the mA and/or kV according to patient size and/or use of iterative reconstruction te [place]nique. FINDINGS: Chest: Pulmonary arteries: Contrast bolus is adequate.No filling defects identified. Mild respiratory motion artifact. Suboptimal evaluation of the subsegmental pulmonary arteries due to respiratory motion art ifact. Thyroid: Bilateral thyroid nodules, largest measuring 3.3 cm. Great Vessels: Great vessels have normal anatomic configuration. Thoracic Aorta: Atherosclerotic calcification of the thoracic aorta. Heart: Coronary artery atherosclerosis. Mild cardiomegaly. No significant pericardial effusion. Lymph Nodes: No enlarged mediastinal lymph nodes identified. Esophagus: No abnormalities of the esophagus identified. Other: No additional findings. Lungs: Low lung volumes. Bibasilar opacities with volume loss, greater on the left than the right. No definite peripheral interstitial opacities. Pleura: No pleural effusion or pneumothorax. Trachea/Airways: No abnormalities of the visualized trachea or airways. Bones: Osteopenia. Endplate spondylosis. Stable vertebral plana at T12. Upper Abdomen: Limited images of the upper abdomen demonstrate no definite abnormalities of visualize d portions of the liver, gallbladder, pancreas, spleen, adrenal glands, or kidneys. Small left renal cyst. IMPRESSION: 1. No pulmonary embolus identified. Suboptimal evaluation of the subsegmental pulmonar y arteries due to respiratory motion artifact. 2. Low lung volumes with bibasilar opacities with volume loss, greater on the left than the right. This may be related to atelectasis however developing pneumonic process could contribute to this appe arance. 3. Coronary artery atherosclerosis. Mild cardiomegaly. 4. 3.3 cm incidental thyroid nodule. Recommend thyroid US. Reference: J Am Mihir Radiol. 2015 Apr;12 (2): 143-50 Electronically signed by: Orestes Coppola 10/27/2021 1:19 AM CDT Due to temporary technical issues with the PACS/Fluency reporting system, reports are being signed by the in house radiologists without review as a courtesy to insure prompt reporting. The interpreting radiologist is fully responsible for the content of the report.
--- NOTE | 2021-10-28 08:17 | EKG ---
Test Date: 2021-10-26 Test Time: 21:36:35 Wheel Borer: JULIA MEASUREMENT RESULTS: Intervals: Rate: 68 NE: 160 QRSD: 86 QT: 484 QTc: 514 [place]: P: 20 NE: 160 QRS: 54 T: 83 INTERPRETIVE STATEMENTS: Sinus rhythm with premature atrial complexes with aberrant conduction Prolonged QT Abnormal ECG Compared to ECG 07/29/2021 02:15:56 Atrial premature complex(es) now present Aberrant conduction of supraventricular beat(s) now present ST (T wave) deviation no longer present Possible ischemia no longer present Electronically Signed On 10-28-21 08:11:37 CDT by Apolinar Pearson
== END 2021-10-27 02:15 | disposition left against medical advice (07) ==
LOC: ER 19:33
DX: U07.1 COVID-19 (principal); R07.9 Chest pain, unspecified; I10 Essential (primary) hypertension; F41.9 Anxiety disorder, unspecified
CPT/HCPCS: 36415; 70450; 71045; 71275; 80048; 80076; 81003; 83735; 83880; 84484; 85025; 85379; 85610; 93005; 99284; Q9967; U0003